=== PATIENT | male | born 1940 | race American Indian/Alaskan Native ===

== ENCOUNTER 2019-04-26 13:18 | Emergency (ER) | payer MEDICARE ==
--- NOTE | 2019-04-26 14:10 | Event Note ---
ED Screening Note Date of service: 04/26/19 Time: 14:08 ED Screening Note: 79 y o male with pmh of gout presents with pain in hands, redness and swelling with inability to hold objects due to pain meds not working This initial assessment/diagnostic orders/clinical plan/treatment(s) is/are subject to change based on patients health status, clinical progression and re- assessment by fellow clinical providers in the ED. Further treatment and workup at subsequent clinical providers discretion. Patient/guardian urged not to elope from the ED as their condition may be serious if not clinically assessed and managed. Initial orders include: acc eval iv steroids, colchicone and pain meds
[2019-04-26] MEDS ORDERED: dexAMETHasone 20 MG/5 ML VIAL IV ONE (18:25)
[2019-04-26] MEDS ORDERED: COLCHICINE 0.6 MG CAP PO ONE (18:25)
[2019-04-26] MEDS ORDERED: KETOROLAC 30 MG/1 ML INJ IM ONE (18:25)
[2019-04-26] MEDS ORDERED: oxyCODONE /ACETAMINOPHEN 5-325MG TAB PO ONE (18:27)
--- NOTE | 2019-04-26 19:00 | Emergency Department Report ---
ED Extremity Problem HPI - General Chief complaint: Extremity Problem,Nontraumatic Stated complaint: GOUT Time Seen by Provider: 04/26/19 18:23 Source: patient Mode of arrival: Ambulatory Limitations: No Limitations - History of Present Illness Initial comments: 79-year-old -[place] male presents to the emergency room for any pain that is related to his gout. Patient states it is been bothering her for 1 week. Patient states he is taking allopurinol in all which she reports is not helping. Patient also states that he is on a blood thinner but this has been held secondary to oral procedure. Patient denies any chest pain or shortness of breathing. She denies any injury to his hand. He denies drinking any alcohol eating any shellfish eating any organ meat. MD Complaint: extremity pain, extremity swelling Onset/Timin -: days(s) Location: left History of Same: Yes -: Yes arthralgia Radiation: distal Severity scale (0 -10): 10 Quality: stabbing, aching, sharp Consistency: constant Improves with: nothing Worsens with: palpation, other (movement) Associated Symptoms: arthralgias - Related Data Home Medications Medication Instructions Recorded Confirmed Last Taken Aspirin [Aspirin BABY CHEW TAB] 81 mg PO QDAY 01/02/14 06/18/14 Unknown Atorvastatin [Lipitor Tab] 40 mg PO DAILY 01/02/14 06/18/14 Unknown Metoprolol [Lopressor TAB] 50 mg PO DAILY 01/02/14 06/18/14 Unknown amLODIPine [Norvasc] 10 mg PO DAILY 01/02/14 06/18/14 Unknown lisinopriL [Lisinopril] 10 mg PO DAILY 01/02/14 06/18/14 Unknown Previous Rx's Medication Instructions Recorded Last Taken Type oxyCODONE /ACETAMINOPHEN [Percocet 1 tab PO Q6HR PRN #14 tablet 06/18/14 Unknown Rx 5/325 mg] predniSONE [Deltasone] 20 mg PO BID #8 tablet 06/18/14 Unknown Rx Colchicine 0.6 mg PO QDAY #2 capsule 04/26/19 Unknown Rx HYDROcodone/APAP 7.5-325 [Harlan 1 each PO Q8HR PRN #12 tablet 04/26/19 Unknown Rx 7.5/325] Indomethacin 50 mg PO Q8H #21 capsule 04/26/19 Unknown Rx predniSONE [Deltasone] 40 mg PO QDAY #10 tab 04/26/19 Unknown Rx Allergies Allergy/AdvReac Type Severity Reaction Status Date / Time peanut Allergy Rash Verified 06/18/14 08:14 ED Review of Systems ROS: Stated complaint: GOUT Other details as noted in HPI Comment: All other systems reviewed and negative ED Past Medical Hx - Past Medical History Previous Medical History?: Yes Hx Hypertension: Yes Hx Renal Disease: Yes ("lot of protein") Hx Arthritis: Yes Additional medical history: GOUT. CAD - Surgical History Past Surgical History?: Yes Hx Open Heart Surgery: Yes (2008 x7 vessels) - Social History Smoking Status: Never Smoker Substance Use Type: None - Medications Home Medications: Home Medications Medication Instructions Recorded Confirmed Last Taken Type Aspirin [Aspirin BABY CHEW TAB] 81 mg PO QDAY 01/02/14 06/18/14 Unknown History Atorvastatin [Lipitor Tab] 40 mg PO DAILY 01/02/14 06/18/14 Unknown History Metoprolol [Lopressor TAB] 50 mg PO DAILY 01/02/14 06/18/14 Unknown History amLODIPine [Norvasc] 10 mg PO DAILY 01/02/14 06/18/14 Unknown History lisinopriL [Lisinopril] 10 mg PO DAILY 01/02/14 06/18/14 Unknown History oxyCODONE /ACETAMINOPHEN [Percocet 1 tab PO Q6HR PRN #14 tablet 06/18/14 Unknown Rx 5/325 mg] predniSONE [Deltasone] 20 mg PO BID #8 tablet 06/18/14 Unknown Rx Colchicine 0.6 mg PO QDAY #2 capsule 04/26/19 Unknown Rx HYDROcodone/APAP 7.5-325 [Harlan 1 each PO Q8HR PRN #12 tablet 04/26/19 Unknown Rx 7.5/325] Indomethacin 50 mg PO Q8H #21 capsule 04/26/19 Unknown Rx predniSONE [Deltasone] 40 mg PO QDAY #10 tab 04/26/19 Unknown Rx ED Physical Exam - General Limitations: No Limitations General appearance: alert, in no apparent distress - Head Head exam: Present: atraumatic, normocephalic - Eye Eye exam: Present: normal appearance - Expanded Upper Extremity Exam Left Shoulder Exam: Present: normal inspection, full ROM Upper Arm exam: Present: normal inspection, full ROM Elbow exam: Present: normal inspection, full ROM Forearm Wrist exam: Present: normal inspection, full ROM Hand Wrist exam: Present: tenderness, swelling, erythema, other (warmth) Vascular: Present: normal capillary refill - Neurological Exam Neurological exam: Present: alert, oriented X3 - Psychiatric Psychiatric exam: Present: normal affect, normal mood - Skin Skin exam: Present: warm, dry, intact, normal color. Absent: rash ED Course Vital Signs 04/26/19 14:10 Temperature 98.7 F Pulse Rate 87 Respiratory 18 Rate Blood Pressure 142/77 O2 Sat by Pulse 100 Oximetry ED Medical Decision Making - Medical Decision Making 79-year-old -[place] male presents to the emergency room for any pain that is related to his gout. Patient states it is been bothering her for 1 week. Patient states he is taking allopurinol in all which she reports is not helping. Patient also states that he is on a blood thinner but this has been held secondary to oral procedure. Patient denies any chest pain or shortness of breathing. She denies any injury to his hand. He denies drinking any alcohol eating any shellfish eating any organ meat. She'll be given Toradol, dexamethasone, colchicine and Percocet for pain management. Patient be discharged home on colchicine 0.6 mg every 8 hours times one day. Patient be discharged on prednisone 40 mg by mouth daily for 5 days. Patient be discharged home on indomethacin 50 mg twice a day. Patient is to follow a gout diet and to follow up with his primary care provider. Critical care attestation.: If time is entered above; I have spent that time in minutes in the direct care of this critically ill patient, excluding procedure time. ED Disposition Clinical Impression: Gout attack Disposition: - TO HOME OR SELFCARE Is pt being admited?: No Does the pt Need Aspirin: No Condition: Stable Instructions: Acute Gouty Arthritis (ED) Prescriptions: Colchicine 0.6 mg PO QDAY #2 capsule predniSONE [Deltasone] 40 mg PO QDAY #10 tab Indomethacin 50 mg PO Q8H #21 capsule HYDROcodone/APAP 7.5-325 [Harlan 7.5/325] 1 each PO Q8HR PRN #12 tablet PRN Reason: Pain Referrals: PRIMARY CARE, [Primary Care Provider] - 3-5 Days
[2019-04-26 20:47] VITALS: BP 144/72
== END 2019-04-26 20:47 | disposition home or self-care (01) ==
LOC: ED 13:18
DX: M10.9 Gout, unspecified (principal); I10 Essential (primary) hypertension; M19.90 Unspecified osteoarthritis, unspecified site; Z79.899 Other long term (current) drug therapy; Z91.010 Allergy to peanuts
CPT/HCPCS: 96372; 96374; 99283; J1100; J1885